=== PATIENT | male | born 1945 | race Caucasian/White ===

== ENCOUNTER 2023-12-13 21:44 | Emergency (ER) | payer MEDICARE, SELFPAY ==
--- NOTE | ~2023-12-13 | CT_ITS ---
EXAMINATION: CT ABDOMEN AND PELVIS WITH CONTRAST CLINICAL INFORMATION: Diarrhea. Weight loss. COMPARISON: None available. TECHNIQUE: Multidetector volumetric images were obtained from the superior aspect of the liver through the pubic symphysis following administration 85 mL of Omnipaque 350 intravenous contrast. Sagittal and coronal reformatted images were obtained on the technologist's workstation. Oral contrast: No This CT examination was performed using dose optimization techniques as appropriate, variously including the following: *Automated exposure control *Adjustment of mA and/or kV according to patient size (this includes techniques or standardized protocols for targeted exams where dose is matched to indication/reason for exam; i.e. extremities or head) *Use of iterative reconstruction technique DLP: 381 mGy-cm FINDINGS: LUNG BASES: The visualized lung bases are unremarkable. LIVER, GALLBLADDER, AND BILIARY TREE: The liver is slightly irregular in contour. No focal liver lesions are seen. There is no intrahepatic biliary duct dilatation. The gallbladder is unremarkable with no evidence of radiopaque gallstones, gallbladder wall thickening, or obvious pericholecystic inflammatory changes. PANCREAS: There is fatty infiltration of the pancreas. Scattered pancreatic calcifications are noted. SPLEEN: Unremarkable. ADRENAL GLANDS: Unremarkable. KIDNEYS AND URETERS: The kidneys are normal in size, shape, and attenuation. Scattered small right renal calculi and renal vascular calcification. BLADDER: Unremarkable. GASTROINTESTINAL TRACT: There are diverticula of the descending and sigmoid colon without diverticulitis. Stomach is mostly decompressed. There appears to be mild gastric fold thickening. There is mild thickening of the visualized distal esophagus. The appendix is visualized and is within normal limits. ABDOMINAL WALL: There is a minimal umbilical hernia containing fat. LYMPH NODES: Normal. VASCULAR: There is atherosclerotic plaque of the abdominal aorta with an infrarenal abdominal aortic bulge of 2.8 cm. PELVIC VISCERA: Unremarkable. OSSEOUS STRUCTURES: There is moderate lumbar degenerative change with mild curvature to the right. CT/CT abdomen pelvis w IV con IMPRESSION: 1. Diverticulosis of the descending and sigmoid colon. No evidence of diverticulitis. 2. Slightly irregular contour of the liver hepatocellular disease/mild cirrhosis.. . Fatty infiltration of the pancreas. Scattered pancreatic calcifications suggestive of chronic pancreatitis. 3. Decompressed stomach with suggestion of gastric fold thickening. 4. Mild thickening of the visualized distal esophagus possibly esophagitis. 5. 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 Fleischner guidelines were followed. Electronically signed by: Román Lee MD 12/14/2023 05:19 AM EDT RP
[2023-12-13 22:01] VITALS: BP 133/62; PULSE 77; RESP 18; TEMP 36.3; O2SAT 98; BMI 22.0
[2023-12-13 22:25] LABS: Hematocrit 35.4 % (42.0-52.0); Hemoglobin 11.9 g/dl (14.0-18.0); Mean Corpuscular HGB Conc 33.6 g/dl (31.0-36.0); Mean Corpuscular Hemoglobin 32.9 pg (27.0-33.0); Mean Corpuscular Volume 97.8 fL (80.0-98.0); Mean Platelet Volume 9.1 fL (9.4-12.4); Platelet Count 175 X10*3/uL (160-400); Red Blood Count 3.62 X10*6/uL (4.60-5.80); Red Cell Distribution Width 13.2 % (11.0-16.0); White Blood Count 9.5 X10*3/uL (4.8-10.8)
[2023-12-13 22:40] LABS: COVID-19 Test Negative (Negative); IDNOW Serial# 58CA691E
[2023-12-13 22:42] LABS: IDNOW Serial# 6674DD1D; Influenza A Negative (Negative); Influenza B2 Negative (Negative)
[2023-12-13 22:47] LABS: Alanine Aminotransferase 14 U/L (0-40); Albumin Level 3.8 g/dL (3.5-5.0); Alkaline Phosphatase 58 U/L (39-117); Anion Gap 11 (12-20); Aspartate Amino Transferase 18 U/L (5-37); Bilirubin Total 0.2 mg/dL (0.0-1.0); Blood Urea Nitrogen 38 mg/dL (9-16); Calcium 9.2 mg/dL (8.4-10.2); Carbon Dioxide 22 mmol/L (22-29); Chloride 114 mmol/L (96-108); Creatinine Clr Calc Pharmacy 29.2; Estimated Glomerular Filt Rate 34; Glucose Random 110 mg/dL (60-115); Magnesium 1.8 mg/dL (1.6-2.6); Potassium 3.9 mmol/L (3.3-5.1); Sodium 143 mmol/L (135-145); Total Protein 6.9 g/dL (6.5-8.0)
--- NOTE | 2023-12-14 02:42 | ED_ITS ---
HPI - General Adult General Chief complaint: General Medical Stated complaint: weakness Time Seen by Provider: 12/14/23 02:41 Source: patient and family Mode of arrival: ambulatory Limitations: no limitations History of Present Illness ED Provider: Dr. Leonard HPI narrative: patient presents with 3 weeks of diarrhea and weight loss of 20lbs. patient states that he has had continual diarrhea that just goes through him. Denies recent abx, hospitalizations, or travel. Denies fever, no prior abdominal surgery. Onset (ago): week(s) Related Data Previous Rx's ?Medication ?Instructions ?Recorded loperamide 2 mg capsule 2 mg PO Q6H PRN loose stool #20 12/14/23 caps Allergies Allergy/AdvReac Type Severity Reaction Status Date / Time No Known Allergies Allergy Verified 12/13/23 22:04 Review of Systems 2 Review of Systems: Yes all other systems are reviewed and are negative Neurologic: Denies Sensory deficit (Neuro) [facility] Social History Social History Advance Directives: No Advance Directives Information Provided: Yes Do you have a plan to hurt others: No Plan Physical Exam ED Vital Signs: Vital Signs - 24 hr 12/13/23 22:01 12/14/23 03:36 Temperature 97.4 F 97.8 F Pulse Rate 77 79 Respiratory Rate 18 18 Blood Pressure 133/62 169/82 H Pulse Oximetry 98 93 Oxygen Delivery Method Room Air Room Air BMI result Body Mass Index 22.0 Const Other: elderly male appearing thin Nutritional Appearance: average body habitus Orientation/consciousness: oriented to person and patient oriented x3 Limitations: no limitations HENMT Head: Yes normal to inspection Ears: external ears normal General nose exam: Normal external nose present Mouth: Normal oral and palatal mucosa present and oropharynx normal Throat: Yes posterior oropharynx normal Eyes General: appearance normal, both eyes and all related structures Neck Neck: Yes normal visual inspection Chest Chest palpation & inspection: normal inspection of the chest Resp Auscultation: clear to auscultation bilaterally Cardio Jugular venous distension: no JVD Rate: regular rate Rhythm: regular rhythm Heart sounds: S1 normal heart sound present and S2 normal heart sound present GI Inspection: Yes normal to inspection Palpation (GI): Soft to palpation, nontender and No hepatosplenomegaly present Auscultation: normal bowel sounds General: Yes no CVA tenderness Back/Spine/Pelvis Back: no CVA tenderness Skin General skin exam: no rashes or lesions noted Neuro General: oriented to person and patient oriented x3 Cranial nerves: Yes CN's II-XII intact bilaterally Motor exam (neuro): 5/5 motor strength present throughout Sensory Exam: No Sensory deficit (Neuro) Extrem General: Yes normal to inspection Psych Appearance: grossly normal Course Reevaluation(s) Reevaluation #1: Labs consistent with dehydration, CT does not show any mass or evidence of infection. Will start loperamide for diarrhea and have patient follow up with his pmd Time: 05:45 Medications Administered Discontinued Medications Generic Name Dose Route Start Last Admin Trade Name Freq PRN Reason Stop Dose Admin Sodium Chloride 1,000 mls @ 999 mls/hr 12/14/23 03:00 12/14/23 05:48 Ns IVCONT 12/14/23 05:00 Infused .Q1H1M JADE Infusion Iohexol 85 ml 12/14/23 04:03 12/14/23 04:04 Iohexol 350 Mg/Ml 100 Ml Infus..Btl IV 12/14/23 04:04 85 ml ONCE ONE Administration Medical Decision Making Differential Diagnosis Differential Diagnoses: The differential diagnosis associated with the presentation includes (dehydration, malignancy, cdiff, diverticulitis) Admission/Observation Consideration of admission/observation: Escalation of care including admission/observation considered (upon arrival patient considered for admission) Lab Data 12/13/23 22:19 12/13/23 22:19 Labs: Lab Results 12/13/23 Range/Units 22:19 WBC 9.5 (4.8-10.8) X10*3/uL RBC 3.62 L (4.60-5.80) X10*6/uL Hgb 11.9 L (14.0-18.0) g/dl Hct 35.4 L (42.0-52.0) % MCV 97.8 (80.0-98.0) fL MCH 32.9 (27.0-33.0) pg MCHC 33.6 (31.0-36.0) g/dl RDW 13.2 (11.0-16.0) % Plt Count 175 (160-400) X10*3/uL MPV 9.1 L (9.4-12.4) fL Absolute Nucleated RBC 0.000 (0.0-0.012) X10*3/uL Nucleated RBC % (auto) 0.0 (0.0-0.2) /100WBC Sodium 143 (135-145) mmol/L Potassium 3.9 (3.3-5.1) mmol/L Chloride 114 H (96-108) mmol/L Carbon Dioxide 22 (22-29) mmol/L Anion Gap 11 L (12-20) BUN 38 H (9-16) mg/dL Creatinine 1.90 H (0.5-1.4) mg/dL Estim Creat Clear Calc 29.2 Estimated GFR 34 Random Glucose 110 (60-115) mg/dL Calcium 9.2 (8.4-10.2) mg/dL Magnesium 1.8 (1.6-2.6) mg/dL Total Bilirubin 0.2 (0.0-1.0) mg/dL AST 18 (5-37) U/L ALT 14 (0-40) U/L Alkaline Phosphatase 58 (39-117) U/L Total Protein 6.9 (6.5-8.0) g/dL Albumin 3.8 (3.5-5.0) g/dL COVID-19 ([facility]) Negative (Negative) COVID-19 Clin Com See Note Influenza Type A ([facility]) Negative (Negative) Influenza Type B ([facility]) Negative (Negative) Influenza A & B Note See Note Independent Interpretation I performed an independent interpretation of an: CT Scan (no perforation or mass seen) Radiology Impression Discussion of test interpretation with radiology: I have reviewed the radiologist's reading. (and I agree) Independent Historian Clinical information obtained from an independent historian. History obtained from or confirmed by: Spouse and Friend Prescription Management I considered prescription management with: Antibiotic (no evidence of infection) Discharge Plan Discharge Clinical Impression: Acute dehydration, Diarrhea Patient Disposition: Home, Self-Care Instructions: Dehydration (ED), Acute Diarrhea (ED) Prescriptions: New loperamide 2 mg capsule 2 mg PO Q6H PRN (Reason: loose stool) Qty: 20 0RF Referrals: Physician,Unknown J [Primary Care Provider] - 3 days Print Language: Upper Sorbian
[2023-12-14] MEDS: 0.9 % Sodium Chloride 1,000 ML 999 ML IVCONT ×2 (03:29→04:44)
[2023-12-14 03:36] VITALS: BP 169/82; PULSE 79; RESP 18; TEMP 36.6; O2SAT 93
[2023-12-14] MEDS: iohexoL 350 MG/ML 100 ML INFUS..BTL 85 ML IV (04:04)
[2023-12-14 06:28] VITALS: BP 164/81; PULSE 90; RESP 18; TEMP 36.7; O2SAT 94
== END 2023-12-14 06:38 | disposition home or self-care (01) ==
PROVIDERS: Emergency Provider Emergency Medicine
DX: E86.0 Dehydration (principal); R19.7 Diarrhea, unspecified; R53.1 Weakness; R10.2 Pelvic and perineal pain; Z11.52 Encounter for screening for COVID-19; Z79.899 Other long term (current) drug therapy
CPT/HCPCS: 36415; 74177; 80053; 83735; 85027; 87502; 87635; 96360; 96361; 99284; Q9967